=== PATIENT | male | born 1995 | race Caucasian/White ===

== ENCOUNTER 2019-05-16 13:22 | Emergency (ER) | payer SELFPAY ==
--- NOTE | 2019-05-16 13:44 | EDM.PDOC ---
ED HPI GENERAL MEDICAL PROBLEM - General Chief Complaint: Respiratory Problem Stated Complaint: HARD TIME BREATHING/COLD SYMPTOMS Time Seen by Provider: 05/16/19 13:44 Source of Information: Reports: Patient History Limitations: Reports: No Limitations - History of Present Illness INITIAL COMMENTS - FREE TEXT/NARRATIVE: HISTORY AND PHYSICAL: History of present illness: Patient is a 24-year-old male presents to the ED With complaint of cough and difficulty breathing. He states he has had a cough for the past 2 days and is coughing so hard it causes him to vomit. Girlfriend states he has had subjective fevers. He states he has had some diarrhea. Denies hemoptysis, abdominal pain, headache, chest pain. He states he quit smoking 2 weeks ago, he was smoking about 1 pack per week for 5+ years. Review of systems: As per history of present illness and below otherwise all systems reviewed and negative. Past medical history: As per history of present illness and as reviewed below otherwise noncontributory. Surgical history: As per history of present illness and as reviewed below otherwise noncontributory. Social history: No reported history of drug or alcohol abuse. Family history: As per history of present illness and as reviewed below otherwise noncontributory. Physical exam: General: Patient sitting comfortably in no acute distress and nontoxic appearing HEENT: Atraumatic, normocephalic, pupils reactive, negative for conjunctival pallor or scleral icterus, mucous membranes moist, throat clear, neck supple, nontender, trachea midline. No meningeal signs. Lungs: Clear to auscultation, breath sounds equal bilaterally, chest nontender. Heart: S1S2, regular, negative for clicks, rubs, or overt murmur. Abdomen: Soft, nondistended, nontender. Negative for masses or hepatosplenomegaly. Negative for costovertebral tenderness. No rigidity, rebound , guarding. Pelvis: Stable nontender. Genitourinary: Deferred. Rectal: Deferred. Extremities: Atraumatic, negative for cords or calf pain. Neurovascular unremarkable. Neuro: Awake, alert, oriented. Cranial nerves II through XII unremarkable. Cerebellum unremarkable. Motor and sensory unremarkable throughout. Exam nonfocal. Notes: Discussed with patient my concern of his elevated blood pressure. He states he always gets elevated blood pressure when he is sick. He denies chest pain or headache. I advised patient that I would like to do an EKG and labs and medication to lower BP and he declines at this time and understands the risks of this. Diagnostics: influenza, rapid strep, chest x-ray Therapeutics: Duo[employer]eb Prescriptions: Ventolin inhaler Medrol dosepak Impression: Acute bronchitis Definitive disposition and diagnosis as appropriate pending reevaluation and review of above. Throat Pain Score (Numeric/FACES): 4 - Related Data Allergies Allergy/AdvReac Type Severity Reaction Status Date / Time amoxicillin Allergy Anaphylactic Verified 05/16/19 13:55 Shock Penicillins Allergy Anaphylactic Verified 05/22/18 21:17 Shock Home Meds: Home Meds Albuterol [Ventolin HFA] 1 puff INH Q4H #1 inhaler 05/16/19 [Rx] Ibuprofen 800 mg PO Q6H PRN 05/16/19 [History] methylPREDNISolone [Medrol] 4 mg PO ASDIRECTED #1 tab.ds.pk 05/16/19 [Rx] Past Medical History HEENT History: Reports: Impaired Vision Other HEENT History: Wears glasses Cardiovascular History: Reports: Hypertension Musculoskeletal History: Reports: Fracture - Infectious Disease History Infectious Disease History: Reports: Mononucleosis ED ROS GENERAL - Review of Systems Review Of Systems: Comprehensive ROS is negative, except as noted in HPI. ED EXAM, GENERAL - Physical Exam Exam: See Below (see dictation) Course - Vital Signs Last Recorded V/S: Last Vital Signs Temp 96.9 F 05/16/19 13:58 Pulse 91 05/16/19 13:58 Resp 22 H 05/16/19 13:58 BP 220/126 H 05/16/19 13:58 Pulse Ox 93 L 05/16/19 13:58 - Orders/Labs/Meds Orders: Active Orders 24 hr Category Date Time Status RT Aerosol Therapy [RC] ASDIRECTED Care 05/16/19 14:09 Active CULTURE STREP A CONFIRMATION [RM] Stat Lab 05/16/19 13:35 Results STREP SCRN A RAPID W CULT CONF [RM] Stat Lab 05/16/19 13:35 Results Meds: Medications Discontinued Medications Generic Name Dose Route Start Last Admin Trade Name Freq PRN Reason Stop Dose Admin Albuterol/Ipratropium 3 ml 05/16/19 14:08 05/16/19 14:13 Duoneb 3.0-0.5 Mg/3 Ml NEB 05/16/19 14:09 3 ml ONETIME ONE Administration Departure - Departure Time of Disposition: 15:14 Disposition: Home, Self-Care 01 Condition: Good Clinical Impression: Acute bronchitis - Discharge Information Prescriptions: Albuterol [Ventolin HFA] 1 puff INH Q4H #1 inhaler methylPREDNISolone [Medrol] 4 mg PO ASDIRECTED #1 tab.ds.pk Referrals: PCP,Unobtain [Primary Care Provider] - Forms: ED Department Discharge Additional Instructions: The following information is given to patients seen in the emergency department who are being discharged to home. This information is to outline your options for follow-up care. We provide all patients seen in our emergency department with a follow-up referral. The need for follow-up, as well as the timing and circumstances, are variable depending upon the specifics of your emergency department visit. If you don't have a primary care physician on staff, we will provide you with a referral. We always advise you to contact your personal physician following an emergency department visit to inform them of the circumstance of the visit and for follow-up with them and/or the need for any referrals to a consulting specialist. The emergency department will also refer you to a specialist when appropriate. This referral assures that you have the opportunity for follow-up care with a specialist. All of these measure are taken in an effort to provide you with optimal care, which includes your follow-up. Under all circumstances we always encourage you to contact your private physician who remains a resource for coordinating your care. When calling for follow-up care, please make the office aware that this follow-up is from your recent emergency room visit. If for any reason you are refused follow-up, please contact the [facility] Emergency Department at and asked to speak to the emergency department charge nurse. [facility] [address] [place] [address] [id number] [address] [address] Take medication as instructed Follow up with primary care provider Return to ED as needed as discussed - My Orders Last 24 Hours: My Active Orders 05/16/19 13:35 CULTURE STREP A CONFIRMATION [RM] Stat STREP SCRN A RAPID W CULT CONF [RM] Stat 05/16/19 14:09 RT Aerosol Therapy [RC] ASDIRECTED - Assessment/Plan Last 24 Hours: My Active Orders 05/16/19 13:35 CULTURE STREP A CONFIRMATION [RM] Stat STREP SCRN A RAPID W CULT CONF [RM] Stat 05/16/19 14:09 RT Aerosol Therapy [RC] ASDIRECTED
[2019-05-16] MEDS ORDERED: Albuterol/Ipratropium 3.0-0.5 MG/3 ML Neb Soln NEB ONE (14:08)
--- NOTE | 2019-05-16 14:51 | CR ---
Chest: Two views of the chest are obtained. Comparison: No previous chest x-ray. Heart has a left ventricular configuration which is abnormal for a patient of this age. Lungs are clear with no acute parenchymal change. Slight anterior wedging is seen at the thoracolumbar junction which is likely chronic. Impression: 1. Left ventricular configuration of the heart which is abnormal for a patient of this age. 2. Spine changes which are felt to be old. 3. Nothing acute is otherwise seen. Diagnostic code #3 MTDD
== END 2019-05-16 15:34 | disposition home or self-care (01) ==
LOC: MW.ED 13:22
DX: J20.9 Acute bronchitis, unspecified (principal); I10 Essential (primary) hypertension; Z88.0 Allergy status to penicillin; Z88.1 Allergy status to other antibiotic agents
CPT/HCPCS: 71046; 71046-26; 87081; 87804; 87880-QW; 94640; 99283; 99285-25; J7620-GY